=== PATIENT | female | born 1995 | race Caucasian/White ===

== ENCOUNTER → 2021-06-13 | Outpatient (CLI) | payer OTHER ==
[2021-06-15 01:11] LABS: CHLAMYDIA TRACHOMATIS, NAA Negative (Negative)
== END | disposition home or self-care (01) ==
LOC: LAB SHORT 11:26 → LAB 11:26
PROVIDERS: Advanced Practice Midwife
DX: Z11.3 Encounter for screening for infections with a predominantly sexual mode of transmission (principal)
CPT/HCPCS: 87491; 87591

== ENCOUNTER → 2021-07-11 | Outpatient (CLI) | payer OTHER ==
[2021-07-11 11:25] LABS: Source, Urine Clean Catch
[2021-07-11 13:28] LABS: Appearance, Urine Clear (Clear); Bilirubin, Urine Neg (Neg); Blood, Urine Neg (Neg); Color, Urine Yellow (P-Yellow); Glucose Qualitative, Urine Neg (Neg); Ketones, Urine Neg (Neg); Leukocyte Esterase, Urine Neg (Neg); Nitrite, Urine Neg (Neg); Protein, Urine 1+ (Neg); Specific Gravity, Urine 1.015 (1.003-1.022); Urobilinogen, Urine NORM (Normal)
[2021-07-12 11:02] LABS: Candida species (DNA Probe) Positive (NEGATIVE); G. vaginalis (DNA Probe) Negative (NEGATIVE); T. vaginalis (DNA Probe) Negative (NEGATIVE)
== END | disposition home or self-care (01) ==
LOC: LAB SHORT 11:19 → LAB 11:19
PROVIDERS: Advanced Practice Midwife
DX: O23.592 Infection of other part of genital tract in pregnancy, second trimester (principal)
CPT/HCPCS: 87480; 87510; 87660

== ENCOUNTER → 2021-10-21 | Outpatient (CLI) | payer OTHER ==
[2021-10-22 13:12] LABS: Candida species (DNA Probe) Positive (NEGATIVE); G. vaginalis (DNA Probe) Positive (NEGATIVE); T. vaginalis (DNA Probe) Negative (NEGATIVE)
== END | disposition home or self-care (01) ==
LOC: LAB 13:02 → LAB SHORT 13:02
PROVIDERS: Advanced Practice Midwife
DX: N76.0 Acute vaginitis (principal)
CPT/HCPCS: 87480; 87510; 87660

== ENCOUNTER → 2021-11-18 | Outpatient (CLI) | payer OTHER ==
[2021-11-19 10:29] LABS: Candida species (DNA Probe) Positive (NEGATIVE); G. vaginalis (DNA Probe) Negative (NEGATIVE); T. vaginalis (DNA Probe) Negative (NEGATIVE)
== END ==
LOC: LAB SHORT 17:05
PROVIDERS: Advanced Practice Midwife
DX: O23.592 Infection of other part of genital tract in pregnancy, second trimester (principal); O09.92 Supervision of high risk pregnancy, unspecified, second trimester; Z3A.00 Weeks of gestation of pregnancy not specified
CPT/HCPCS: 87081; 87150; 87480; 87510; 87660

== ENCOUNTER 2021-12-19 05:05 | Inpatient (IN) | payer OTHER ==
[~2021-12-19] VITALS: Ht 162.6 cm; Wt 68.1 kg
[2021-12-19] MEDS ORDERED: Vitamin C100 M1 PO (05:22)
[2021-12-19] MEDS ORDERED: ERGO400 (05:22)
[2021-12-19] MEDS ORDERED: PRENATAL TABLE1 EAC9 PO (05:23)
[2021-12-19 06:05] LABS: BASOPHILS ABSOLUTE AUTO 0.04 K/mm3 (0.00-0.23); BASOPHILS PERCENT AUTO 0 % (0-2); EOSINOPHILS ABSOLUTE AUTO 0.38 K/mm3 (0.00-0.68); EOSINOPHILS PERCENT AUTO 4 % (0-6); Hematocrit 36.6 % (33.0-51.0); Hemoglobin 12.8 g/dL (11.5-16.0); IMMATURE GRAN ABSOLUTE AUTO 0.06 K/mm3 (0.00-0.10); IMMATURE GRAN PERCENT AUTO 1 % (0-1); LYMPHOCYTES ABSOLUTE AUTO 3.31 K/mm3 (0.84-5.20); LYMPHOCYTES PERCENT AUTO 34 % (21-46); MONOCYTES ABSOLUTE AUTO 0.98 K/mm3 (0.16-1.47); MONOCYTES PERCENT AUTO 10 % (4-13); Mean Corpuscular HGB 30.6 pg (26.0-34.0); Mean Corpuscular Volume 88 fL (80-100); Mean Platelet Volume 10.5 fL (9.1-12.4); NEUTROPHILS ABSOLUTE AUTO 4.93 K/mm3 (1.96-9.15); NEUTROPHILS PERCENT AUTO 51 % (41-73); Platelet Count 175 K/mm3 (150-400); RDW Coefficient Variation 13.2 % (11.7-14.2); RDW Standard Deviation 42.7 fL (35.1-46.3); Red Blood Cell Count 4.18 M/mm3 (3.80-5.20)
--- NOTE | 2021-12-20 07:04 | NUR ---
COVID STATUS CHANGED TO NEGATIVE. RN WHO DOCUMENTED POSITIVE RESULT MADE A MISTAKE CHARTING THE POSITIVE RESULT. PT IS NEGATIVE FOR COVID 19
== END 2021-12-20 11:50 | disposition home or self-care (01) | DRG 807 ==
LOC: OBS 05:05 → BC 05:10 → OBS 05:14 → BC 05:16
PROVIDERS: ADMIT Advanced Practice Midwife
PROC: 10E0XZZ Delivery of Products of Conception, External Approach (ICD-10-PCS; principal; 2021-12-19)
PROC: 0KQM0ZZ Repair Perineum Muscle, Open Approach (ICD-10-PCS; 2021-12-19)
PROC: 10907ZC Drainage of Amniotic Fluid, Therapeutic from Products of Conception, Via Natural or Artificial Opening (ICD-10-PCS; 2021-12-19)
DX: O24.420 Gestational diabetes mellitus in childbirth, diet controlled (principal); Z37.0 Single live birth; Z3A.39 39 weeks gestation of pregnancy; O70.1 Second degree perineal laceration during delivery; Z79.899 Other long term (current) drug therapy
CPT/HCPCS: 36415; 85025; 86850; 86900; 86901; A9270; J1885; J2590; J7120

== ENCOUNTER → 2022-01-30 | Outpatient (CLI) | payer OTHER ==
[~2022-01-30] MED LIST: ERGO400; PRENATAL TABLE1 EAC9 PO; Vitamin C100 M1 PO
== END | disposition home or self-care (01) ==
LOC: LAB SHORT 17:22 → LAB 17:22
PROVIDERS: Advanced Practice Midwife
DX: Z01.419 Encounter for gynecological examination (general) (routine) without abnormal findings (principal)
CPT/HCPCS: G0123

== ENCOUNTER → 2024-01-03 | Outpatient (CLI) | payer OTHER ==
[2024-01-03 17:46] LABS: Source, Urine Voided
[2024-01-03 18:53] LABS: Bacteria Mod /hpf; Red Blood Cells, Urine 0-2 /hpf (0-2); Squamous Epithelial Cells Rare /hpf (Few); White Blood Cells, Urine 0-2 /hpf (0-5)
[2024-01-03 19:26] LABS: U Amphetamine Screen Not Detected; U Barbituate Screen Not Detected; U Benzodiazapine Screen Not Detected; U Buprenorphine Screen Not Detected; U Cannabinoids Screen Not Detected; U Cocaine Screen Not Detected; U Methadone Screen Not Detected; U Methamphetamine Screen Not Detected; U Opiates Screen Not Detected; U Oxycodone Screen Not Detected; U Phencyclidine Screen Not Detected
== END ==
LOC: LAB 17:43 → LAB SHORT 17:43
PROVIDERS: Advanced Practice Midwife
DX: Z34.80 Encounter for supervision of other normal pregnancy, unspecified trimester (principal)
CPT/HCPCS: 81015; 87077; 87086; 87147; 87186

== ENCOUNTER → 2024-07-17 | Outpatient (CLI) | payer OTHER | LOC: LAB 12:48 → LAB SHORT 12:48 | DX: O09.90 Supervision of high risk pregnancy, unspecified, unspecified trimester (principal); Z3A.00 Weeks of gestation of pregnancy not specified | CPT/HCPCS: 87081; 87150 ==

== ENCOUNTER 2024-08-05 13:58 | Inpatient (IN) | payer OTHER ==
[2024-08-05] VITALS (14 sets, daily range): BP systolic 118–139; BP diastolic 67–81
[~2024-08-05] VITALS: Ht 162.6 cm; Wt 68.5 kg
[2024-08-05] MEDS ORDERED: Misoprostol 200 MCG Tab PR PRN (14:20)
[2024-08-05] MEDS ORDERED: Acetaminophen 500 MG Tab PO PRN (14:20)
[2024-08-05] MEDS ORDERED: Carboprost Tromethamine 250 MCG/ML 1ML Amp IM PRN (14:20)
[2024-08-05] MEDS ORDERED: Oxytocin 10 Unit / ML Vial IM PRN (14:20)
[2024-08-05] MEDS ORDERED: Lactated Ringer's 1,000 ML IV PRN (14:20)
[2024-08-05] MEDS ORDERED: Misoprostol 200 MCG Tab BC PRN ×2 (14:20→20:25)
[2024-08-05] MEDS ORDERED: Ondansetron HCl 2 MG / ML 2ML Vial IV PRN (14:20)
[2024-08-05] MEDS ORDERED: Methylergonovine Maleate 0.2MG / ML 1ML Amp IM PRN ×2 (14:20→20:10)
[2024-08-05] MEDS ORDERED: OXYTOCIN/RINGER'S LACTATE 500 ML IV PRN (14:20)
[2024-08-05] MEDS ORDERED: OXYTOCIN/RINGER'S LACTATE 500 ML IV SCH ×2 (14:25→20:05)
[2024-08-05] MEDS ORDERED: Lactated Ringer's 1,000 ML IV SCH ×2 (14:25→20:10)
[2024-08-05] MEDS ORDERED: Calcium Carbonate 500 MG Tab Chew PO SCH (14:25)
[2024-08-05] MEDS ORDERED: Tranexamic Acid 1,000 MG in NS 100 ML IV SCH (14:30)
[2024-08-05 14:57] LABS: BASOPHILS ABSOLUTE AUTO 0.04 K/mm3 (0.00-0.23); BASOPHILS PERCENT AUTO 0 % (0-2); EOSINOPHILS ABSOLUTE AUTO 0.14 K/mm3 (0.00-0.68); EOSINOPHILS PERCENT AUTO 2 % (0-6); Hematocrit 33.7 % (33.0-51.0); IMMATURE GRAN ABSOLUTE AUTO 0.09 K/mm3 (0.00-0.10); IMMATURE GRAN PERCENT AUTO 1 % (0-1); LYMPHOCYTES ABSOLUTE AUTO 2.55 K/mm3 (0.84-5.20); LYMPHOCYTES PERCENT AUTO 27 % (21-46); MONOCYTES ABSOLUTE AUTO 0.76 K/mm3 (0.16-1.47); MONOCYTES PERCENT AUTO 8 % (4-13); Mean Corpuscular HGB 30.8 pg (26.0-34.0); Mean Corpuscular HGB Conc 35.6 g/dL (31.5-36.5); Mean Corpuscular Volume 86 fL (80-100); NEUTROPHILS ABSOLUTE AUTO 5.85 K/mm3 (1.96-9.15); NEUTROPHILS PERCENT AUTO 62 % (41-73); Platelet Count 174 K/mm3 (150-400); RDW Coefficient Variation 13.6 % (11.7-14.2); RDW Standard Deviation 42.5 fL (35.1-46.3); White Blood Cell Count 9.43 K/mm3 (4.00-11.30)
[2024-08-05] MEDS ORDERED: Witch Hazel/Glycerin PADS TOP PRN (20:05)
[2024-08-05] MEDS ORDERED: Acetaminophen 325 MG TABLET PO PRN (20:05)
[2024-08-05] MEDS ORDERED: Lanolin Cream TOP PRN (20:05)
[2024-08-05] MEDS ORDERED: Benzocaine Topical Anesthetic Spray 60GM TOP PRN (20:05)
[2024-08-05] MEDS ORDERED: FLU VACC TS2024-25(6MOS UP)/PF 45 MCG/0.5 ML SYRINGE IM ONE (20:10)
[2024-08-05] MEDS ORDERED: Measles/Mumps/Rubella Vaccine 0.5 ML Vial SC ONE (20:10)
[2024-08-05] MEDS ORDERED: Ibuprofen 400 MG Tab PO PRN (20:10)
[2024-08-05] MEDS ORDERED: Docusate Sodium 100 MG Cap PO PRN (20:10)
[2024-08-05] MEDS ORDERED: Ketorolac Tromethamine 30mg Vial IV PRN (20:10)
[2024-08-06] VITALS (7 sets, daily range): BP systolic 109–131; BP diastolic 63–73
[2024-08-06] MEDS ORDERED: Prenatal Vit/FE Fumarate/FA 1 Tab PO SCH (09:00)
--- NOTE | 2024-08-06 14:35 | NUR ---
patient up to quick shower and voided, linen change, b/p up to 174/86 after shower, continue to monitor
--- NOTE | 2024-08-06 21:48 | NUR ---
PT WALKED OUT BY RN TO CAR. NB IN REAR FACING STYLE CARSEAT. PT HAS [facility] APPOINTMENT MADE, THEY HAVE APPOINTMENT CARD IN FOLDER. PT HAS NO QUESTIONS ABOUT DISCHARGE TEACHING, PT AWARE THAT SHE CAN CALL [facility] DESK PHONE IF ANY QUESTIONS OR CONCERNS ARRISE AT HOME. VS WNL UPON DISCHARGE. HEARING TEST REFFERED
== END 2024-08-06 21:20 | disposition home or self-care (01) | DRG 807 ==
LOC: OBS 13:58 → BC 14:13
PROVIDERS: ADMIT Advanced Practice Midwife
PROC: 10E0XZZ Delivery of Products of Conception, External Approach (ICD-10-PCS; principal; 2024-08-05)
PROC: 0HQ9XZZ Repair Perineum Skin, External Approach (ICD-10-PCS; 2024-08-05)
PROC: 3E033VJ Introduction of Other Hormone into Peripheral Vein, Percutaneous Approach (ICD-10-PCS; 2024-08-05)
PROC: 3E0P7VZ Introduction of Hormone into Female Reproductive, Via Natural or Artificial Opening (ICD-10-PCS; 2024-08-05)
PROC: 10907ZC Drainage of Amniotic Fluid, Therapeutic from Products of Conception, Via Natural or Artificial Opening (ICD-10-PCS; 2024-08-05)
DX: O70.0 First degree perineal laceration during delivery (principal); Z37.0 Single live birth; Z3A.39 39 weeks gestation of pregnancy; Z28.21 Immunization not carried out because of patient refusal; Z87.59 Personal history of other complications of pregnancy, childbirth and the puerperium
CPT/HCPCS: 36415; 85025; A9270; J2590; J7120

== ENCOUNTER → 2024-09-25 | Outpatient (CLI) | payer OTHER | LOC: LAB 13:12 → LAB SHORT 13:12 | PROVIDERS: Advanced Practice Midwife | DX: Z01.419 Encounter for gynecological examination (general) (routine) without abnormal findings (principal) | CPT/HCPCS: G0123 ==